=== PATIENT | female | born 1970 | race Caucasian/White ===

== ENCOUNTER → 2016-10-18 | Outpatient (CLI) | payer OTHER ==
[2016-10-18 14:18] LABS: HEMOGLOBIN 15.4 gm/dl (12.3-15.3); WHITE BLOOD COUNT 6.2 K/UL (4.5-11.0)
[2016-10-18 14:43] LABS: BUN/CREATININE RATIO 14 (0-10)
== END ==
LOC: US 13:17
PROVIDERS: Internal Medicine Hematology & Oncology
DX: L95.9 Vasculitis limited to the skin, unspecified (principal); Z86.718 Personal history of other venous thrombosis and embolism; R71.8 Other abnormality of red blood cells
CPT/HCPCS: 36415; 80053; 83010; 85007; 85027; 85300; 85301; 86880; 93970